=== PATIENT | female | born 1970 | race Asian ===

== ENCOUNTER 2016-12-21 11:42 | Emergency (ER) | payer BC ==
--- NOTE | 2016-12-21 12:27 | EDM.PDOC ---
ED HPI RENAL/ - General Chief Complaint: Genitourinary Problem Stated Complaint: DIFFICULTY URINATING Time Seen by Provider: 12/21/16 11:57 Source of Information: Reports: Patient, Family History Limitations: Reports: Language barrier - History of Present Illness INITIAL COMMENTS - FREE TEXT/NARRATIVE: Patient is a 46-year-old female with a language barrier. Patient is [place] and has broken Ecuadorean. Daughter and are present to translate. Patient recently arrived to [place] from [place] 3 months ago. States she has been experiencing pain to suprapubic abdomen with urination. States the pain started two days ago and has been progressively getting worse. Has history of [id number] symptoms in the past that self resolved. Denies any vaginal discharge, pain with intercourse, back pain, fever/chills, nausea/vomiting. Patient has taken azo x2 with marked decrease in symptoms noted. Timing/Duration: Reports: Intermittent Location: Reports: suprapubic Quality: Reports: burning Severity: moderate Worsens with: Reports: urinating Context: Denies: sick contact, recent trauma Associated Symptoms: Reports: burning, dysuria, frequency, urgency, voiding small amounts. 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 ). Denies: discharge, flank pain, hematuria, incontinence, urinary retention Musculoskeletal: Denies: back pain Skin: Denies: rash ED EXAM, RENAL/ - Physical Exam Exam: See Below Exam Limited By: Language barrier General Appearance: alert, WD/WN, no apparent distress Ears: hearing grossly normal Nose: normal inspection Throat/Mouth: Normal voice, No airway compromise Neck: normal inspection Respiratory/Chest: no respiratory distress, lungs clear, normal breath sounds Cardiovascular: normal peripheral pulses, regular rate, rhythm GI/Abdominal: normal bowel sounds, soft, non tender, no organomegaly, no distention (Female) Exam: Deferred Neurological: alert, oriented, CN II-XII intact, normal cognition, no motor/ sensory deficits Psychiatric: normal affect, normal mood Skin Exam: Warm, Dry, Intact, Normal color Course - Vital Signs Last Recorded V/S: Last Vital Signs Temp 97.8 F 12/21/16 11:51 Pulse 81 12/21/16 11:51 Resp 18 12/21/16 11:51 BP 108/61 12/21/16 11:51 Pulse Ox 98 12/21/16 11:51 - Orders/Labs/Meds Orders: Active Orders 24 hr Category Date Time Status CULTURE URINE [RM] Stat Lab 12/21/16 12:00 Received Labs: Laboratory Tests 12/21/16 Range/Units 12:00 Urine Color Light yellow (Yellow) Urine Appearance Clear (Clear) Urine pH 6.0 (5.0-8.0) Ur Specific [place] 1.025 (1.005-1.030) Urine Protein Negative (Negative) Urine Glucose (UA) Negative (Negative) Urine Ketones Negative (Negative) Urine Occult Blood Negative (Negative) Urine Nitrite Negative (Negative) Urine Bilirubin Negative (Negative) Urine Urobilinogen 0.2 (0.2-1.0) Ur Leukocyte Esterase Trace H (Negative) Urine RBC 0-5 (0-5) /hpf Urine WBC 5-10 H (0-5) /hpf Ur Epithelial Cells 0-5 (0-5) /hpf Urine Bacteria Few (FEW) /hpf Urine Mucus Not seen (FEW) /hpf Meds: Medications Discontinued Medications Generic Name Dose Route Start Last Admin Trade Name Freq PRN Reason Stop Dose Admin Nitrofurantoin Macrocrystals 100 mg 12/21/16 12:58 12/21/16 13:10 Macrobid PO 12/21/16 12:59 100 mg ONETIME ONE Administration - Re-Assessments/Exams Free Text/Narrative Re-Assessment/Exam: UA w/micro ordered. 12/21/16 12:23 12/21/16 12:57 UA revealed trace leukocyte esterase and WBC [address] patient on macrobid 100mg bid for 5 days. Urine cultures have been ordered. Departure - Departure Time of Disposition: 12:59 Disposition: Home, Self-Care 01 Condition: good Clinical Impression: UTI, Urinary tract infectious disease Prescriptions: Nitrofurantoin Monohyd/M-Cryst [Macrobid 100 mg Capsule] 100 mg PO BID #10 capsule Instructions: Urinary Tract Infection, Adult, [id number] Referrals: PCP,Natalie [Primary Care Provider] - Henna Batres PA [Physician Boiler Tester] - Forms: ED Department Discharge Additional Instructions: Take Macrobid 100 mg twice a day for 5 days. Push the fluids. Utilize Tylenol as needed for discomfort. With completion of therapy please follow up with primary care provider to ensure that this infection has resolved. Return back to ED for any new or worsening symptoms. - My Orders Last 24 Hours: My Active Orders 12/21/16 12:00 CULTURE URINE [RM] Stat - Assessment/Plan Last 24 Hours: My Active Orders 12/21/16 12:00 CULTURE URINE [RM] Stat
[2016-12-21] MEDS ORDERED: Nitrofurantoin Monohydrate/Macrocrystalline 100 MG Cap PO ONE (12:58)
== END 2016-12-21 13:15 | disposition home or self-care (01) ==
LOC: JD.ED 11:42
DX: N39.0 Urinary tract infection, site not specified (principal); K21.9 Gastro-esophageal reflux disease without esophagitis
CPT/HCPCS: 81001; 87086; 99283; A9270; 87088; 87186

== ENCOUNTER 2024-01-10 16:47 | Emergency (ER) | payer BC ==
[2024-01-10] MEDS: Famotidine 20 MG Tab PO ONE (17:31)
[2024-01-10] MEDS: Aluminum Hydroxide/Magnesium Hydroxide/Simethicone Susp 30 ML Cup PO ONE (17:32)
[2024-01-10 17:50] LABS: BASOPHILS PERCENT AUTO 0.7 % (0.0-1.0); EOSINOPHILS ABSOLUTE AUTO 0.3 K/mm3 (0.0-0.4); EOSINOPHILS PERCENT AUTO 10.2 % (0.0-6.0); HEMATOCRIT 31.4 % (37.0-47.0); HEMOGLOBIN 10.5 gm/dl (12.0-16.0); LYMPHOCYTES ABSOLUTE AUTO 1.2 K/mm3 (1.0-4.8); LYMPHOCYTES PERCENT AUTO 41.5 % (24.0-44.0); MEAN CORPUSCULAR HEMOGLOBIN 30.4 pg (28.0-32.0); MEAN CORPUSCULAR HGB CONC 33.4 g/dl (32.0-36.0); MEAN PLATELET VOLUME 9.9 fl (9.4-12.3); MONOCYTES ABSOLUTE AUTO 0.3 K/mm3 (0.0-0.8); NEUTROPHILS PERCENT AUTO 35.6 % (41.0-71.0); PLATELET COUNT,PLT 151 K/mm3 (150-400); RED BLOOD CELL COUNT 3.45 M/mm3 (4.10-5.30); WHITE BLOOD CELL COUNT,WBC 2.84 K/mm3 (3.9-11.3)
[2024-01-10 18:09] LABS: INR 0.96; PROTHROMBIN TIME 10.3 SECONDS (9.7-12.0)
[2024-01-10 18:12] LABS: A/G RATIO 0.9 (1-2); ALANINE AMINOTRANSFERASE,ALT 35 U/L (14-59); ALBUMIN 3.8 g/dl (3.4-5.0); ALKALINE PHOSPHATASE 72 U/L (46-116); ANION GAP 10.5 (5-15); ASPARTATE AMNIOTRANSFERASE,AST 57 U/L (15-37); BILIRUBIN TOTAL 0.4 mg/dL (0.2-1.0); BLOOD UREA NITROGEN,BUN 16 mg/dL (7-18); CALCIUM 9.2 mg/dL (8.5-10.1); CARBON DIOXIDE,CO2 27 mEq/L (21-32); CHLORIDE,CL 105 mEq/L (98-107); CREATININE 0.8 mg/dL (0.55-1.02); EST CRCL DRUG DOSING (CG) 71.89 mL/min; ESTIMATED GFR 88 mL/min (>60); GLUCOSE RANDOM 111 mg/dL (70-99); MAGNESIUM 1.9 mg/dL (1.8-2.4); POTASSIUM,K 3.5 mEq/L (3.5-5.1); PROTEIN TOTAL,TP 8.1 g/dl (6.4-8.2); SODIUM,NA 139 mEq/L (136-145)
[2024-01-10 18:13] LABS: C-REACTIVE PROTEIN < 0.05 mg/dL (<0.30)
[2024-01-10 19:04] LABS: IRON,FE 53 ug/dL (50-170); PERCENT FE SATURATION 22 % (20-55); TRANSFERRIN 196 mg/dL (202-364)
[2024-01-10 19:08] LABS: TOTAL IRON BINDING CAPACITY 245 ug/dL (100-400)
[2024-01-10] MEDS: Ondansetron 4 MG Tab.DIS PO ONE (19:31)
[2024-01-10 19:32] VITALS: BP 143/75; PULSE 60
== END 2024-01-10 19:35 | disposition home or self-care (01) ==
LOC: JD.ED 16:47
DX: K21.00 Gastro-esophageal reflux disease with esophagitis, without bleeding (principal); Z79.899 Other long term (current) drug therapy
CPT/HCPCS: 36415; 71045; 80053; 82607; 83540; 83735; 84466; 85025; 85610; 86140; 99284; A9270